=== PATIENT | female | born 1930 | race Caucasian/White ===

== ENCOUNTER 2017-02-01 15:36 | Emergency (ER) | payer MEDICARE, BC ==
--- NOTE | 2017-02-09 01:14 | ER ---
ADMIT: 02/01/2017 RM/LOC: ER [facility] MR#: [id number] [address] [id number] DAVID ZAYAS [address] [place] [address] Emergency Room Report SEX: F AGE: 86 : 1930 DATE: 02/01/2017 ADDENDUM: See T-sheet for complete H and P. An 86-year-old female, comes in with some back pain. She does have a history of some chronic back pain. On physical exam, she has some tenderness in the paraspinal muscles in the lower thoracic region with no midline tenderness. She has no neurologic symptoms that she reports. She does state that she might have been having a little bit of urinary incontinence more than her normal baseline incontinence this past week. She has a history of surgery on her right ureter in the past. I did check CBC, CMP, which were both normal and urinalysis which was unremarkable. The patient was given p.o. Valium in the emergency department, is feeling better. She is discharged home to continue her current medications and she is given a prescription for Flexeril. She is to return for any concerning symptoms. Otherwise, follow up with Dr. Baptiste. Noel Chandler MD/ mulugeta JOB #: [id number] CC: Lalo Lockwood MD, Attending Physician Dayna Baptiste MD, Family Physician
== END 2017-02-01 18:55 | disposition home or self-care (01) ==
LOC: ER 15:36
DX: M54.6 Pain in thoracic spine (principal); G89.29 Other chronic pain; Z85.72 Personal history of non-Hodgkin lymphomas; Z88.0 Allergy status to penicillin; Z88.1 Allergy status to other antibiotic agents; Z88.2 Allergy status to sulfonamides